=== PATIENT | female | born 1970 ===

== ENCOUNTER 2023-02-06 02:31 | Day surgery (SDC) | payer OTHER, SELFPAY ==
[2023-02-04 10:32] VITALS: BMI 20.9
--- NOTE | 2023-02-04 10:41 | PC.NURSE ---
Report to the Outpatient Waiting Room, entrance under the green pavilion located off [facility], at time 1230 on date 02/06/23. Planned Procedure Time: 1430. Time changes happen often and if your time is changed the preop area will call you the afternoon before. - You and your visitor will be asked to self-screen and do not enter if you have any COVID symptoms. - Only one visitor is requested with a max of two and NO children visitors are allowed at this time. - The patient visitor may be requested to leave or wait in car when not with patient due to distancing restrictions. - A mask is optional within the hospital at this time. Patients may have clear liquids (water, carbonated beverages, clear teas, apple juice) until 3 hours prior to surgery with a maximum of 20 ounces. - No food from midnight until time of surgery Take the following medications with a SIP of water the morning of surgery: CEPHALEXIN, PAIN PILL IF NEEDED, METOPROLOL, SERTRALINE DO NOT STOP ANY OF YOUR OTHER PRESCRIPTION MEDICATIONS PRIOR TO SURGERY?EXCEPT THE FOLLOWING Medications to discontinue per physician: VITAMINS/SUPPLEMENTS Date to take last dose: NO MORE UNTIL AFTER SURGERY Please no make-up, nail djiboutian, hairspray, perfume, deodorant, or body powder the day of surgery. No jewelry (including any body piercings) or valuables the day of surgery, leave them at home. Please take a shower or bath the night before, or the morning of, surgery with an antibacterial soap. Wear comfortable, loose fitting clothing. - Jewelry must be removed prior to entering the operating room. Rings and piercings that are not removed may be cut off. - The hospital will not accept responsibility for valuables. - Please leave all valuables, including medications, at home the day of surgery. If you are going home after surgery, a licensed stud driver must drive you home. - NO public transportation without another adult if you receive anesthesia. - We recommend that an adult stay with you for 24 hours following discharge. - We also recommend that you do not drive, make important decision, drink alcoholic beverages, or take any drugs that were not prescribed by your health care provider for at least 24 hours after your discharge time. Follow any additional instructions given to you from your surgeon. If you or anyone in your household have experienced Covid symptoms in the past week, please notify your surgeon or the nurse liaison at the phone number below for possible testing. Telephone instructions given to PT - KENDELL BURT and asked if any additional questions and then verbalized understanding. Patient advised to call surgeon office or pre surgery nurse liaison [phone] if any additional questions.
[2023-02-06] VITALS (7 sets, daily range): BP systolic 110–144; BP diastolic 54–89; PULSE 73–95; RESP 12–16; TEMP 36.3–37.3; O2SAT 100
--- NOTE | ~2023-02-06 | XR_ITS ---
XR stent kub - surgery DATE: 02/06/2023 16:13 INDICATION: Right stent placement TECHNIQUE: 4 spot C-arm images of abdomen and pelvis 19.3 seconds fluoroscopy time [id number] mGym2 DAP COMPARISON: None FINDINGS: There is placement of a right internal urinary stent, proximal pigtail overlying the right kidney, the distal pigtail overlying the right side of the base of the urinary bladder. IMPRESSION: Right internal urinary stent placement Reviewed, dictated and finalized at location A.
--- NOTE | 2023-02-06 06:34 | WPDHPUPDATE1 ---
History and Physical Update Update Date/Time: 02/06/23 06:34 History and Physical has been reviewed, including an updated exam of the patient. There are NO changes in the patient's condition. Risks, benefits, and alternatives have been discussed and questions answered. Patient agrees to proceed with procedure.
--- NOTE | 2023-02-06 06:39 | ECG_ITS ---
Measurements Intervals [place] Rate: 61 P: 48 [place]: 170 QRS: 20 QRSD: 88 T: 39 QT: 400 QTc: 405 Interpretive Statements SINUS RHYTHM MINIMAL Q WAVES- INFERIOR LEADS BASELINE ARTIFACT- V4-V5 BORDERLINE ECG NO PREVIOUS ECG AVAILABLE FOR COMPARISON Electronically Signed On 02-06-2023 13:42:38 CDT by Calderon Bailey D.O.
[2023-02-06] MEDS: LACTATED RINGERS 1,000 ML 30 ML IV CONT ×2 (12:45→16:05)
[2023-02-06 13:08] LABS: Hematocrit 29.6 % (37.0-47.0); Hemoglobin 8.7 g/dL (12.0-15.0)
[2023-02-06] MEDS: fentaNYL CITRATE INJ (*CRX) 100 MCG/2 ML VIAL 50 MCG IV PUSH (14:25)
--- NOTE | 2023-02-06 14:28 | WPDANESEPPF ---
Anes - Initial Pre Proc Eval Procedure: Operation Date: 02/06/23 14:30 Proposed Procedures p Cystoscopy, Right Ureteroscopy, Right Stone Extraction, Right Stent Placement, Holmium Laser Procedure - Osorio Pate MD Date/Time: 02/06/23 14:28 Surgeon: Osorio Pate MD Pre Op Diagnosis: kidney stones Patient Data Age: 52 Gender: F Height: 1.68 m Weight: 58 kg Last Vital Signs Temp 36.3 C L 02/06/23 12:30 Pulse 73 02/06/23 12:30 Resp 16 02/06/23 12:30 BP 110/54 L 02/06/23 12:30 Pulse Ox 100 02/06/23 12:30 O2 Del Method Room Air 02/06/23 12:30 Allergies Allergy/AdvReac Type Severity Reaction Status Date / Time No Known Allergies Allergy Unverified 02/06/23 13:15 Home Medications Medication Instructions Recorded Confirmed Type cephalexin 500 mg capsule 500 mg PO TID 02/04/23 02/04/23 History ferrous sulfate 325 mg (65 mg 325 mg PO DAILY 02/04/23 02/04/23 History iron) tablet (Iron (ferrous sulfate)) hydrocodone 5 mg-acetaminophen 325 1 tablet PO Q6H PRN Pain 02/04/23 02/04/23 History mg tablet metoprolol succinate 50 mg 50 mg PO DAILY 02/04/23 02/04/23 History tablet,extended release 24 hr multivitamin 1 tablet PO DAILY 02/04/23 02/04/23 History omeprazole 20 mg capsule,delayed 20 mg PO DAILY 02/04/23 02/04/23 History release ondansetron 4 mg disintegrating 4 mg PO Q8H PRN Nausea 02/04/23 02/04/23 History tablet sertraline 50 mg tablet 75 mg PO DAILY 02/04/23 02/04/23 History Laboratory Tests 02/06/23 12:49 Hgb 8.7 g/dL L g/dL (12.0-15.0) Hct 29.6 % L % (37.0-47.0) Patient hx anesthesia problems: none Family hx anesthesia problems: none Results Review: All pre-operative results and documents have been reviewed as part of the pre-operative evaluation. [facility] Surgical History Surgical History Hx of abdominoplasty Hx of bariatric surgery Gastric sleeve Hx of bilateral breast reduction surgery Hx of section Family History Family History Other Family history of malignant neoplasm of bone Social History Social History Smoking status: Never smoker Alcohol intake: current Alcohol use details: BOTTLE OF WINE/WEEK Substance use: current Substance use type: marijuana Living arrangements: with family Additional living arrangements comments: DAUGHTERS Spiritual care concerns: No Anes - Eval Final PreProcedure Day of Procedure 02/06/23 14:28 Patient weight: normal Heart: regular rate and rhythm Lungs: clear to auscultation Airway: Mallampati scale class II Neurological: alert and oriented Last oral intake: >/= 8 hours ASA classification: III Emergent: no Anesthetic plan: proceed Anesthesia type and monitoring: general LMA and standard monitoring Results Review: All pre-operative results and documents have been reviewed as part of the pre-operative evaluation. Informed Consent: The patient's anesthetic plan and its attendant risks and benefits were discussed with the patient/family/POA. Questions were solicited and answers provided to the satisfaction of the patient/family/POA.
[2023-02-06] MEDS: ceFAZolin 2 GM/D5W 50 ML 2 GM/50 ML BAG IVPB (15:19)
[2023-02-06] MEDS: LIDOCAINE HCL 2% GEL UROJET 10 ML PKG MUCOUS MEM (15:38)
[2023-02-06] MEDS: fentaNYL CITRATE INJ (*CRX) 100 MCG/2 ML VIAL 25 MCG IV PUSH ×4 (16:22→16:44)
--- NOTE | 2023-02-06 17:09 | W.PM.PROC2 ---
Procedure Note - Detailed Date of Procedure 02/06/23 Pre-op Diagnosis Right ureteral stone Post-op Diagnosis Same Procedure Performed Cystoscopy, right ureteroscopy, laser lithotripy with stone extraction and right ureteral stent placement. Surgeon Osorio Pate MD Anesthesia General Description of Procedure The patient was brought to the operative suite where she is prepped and draped in a routine sterile fashion while in the dorsal lithotomy position after the uneventful induction of a general LMA anesthetic. A 19F rigid cystoscope was placed in the bladder. The patient had no evidence of urethral stricture or bladder neck contracture. The bladder mucosa was endoscopically normal without hyperemia or neoplasm. There was a single, orthotopic ureteral orifice bilaterally. A 0.035 glidewire was advanced into the right renal pelvis under fluoroscopy. The distal ureter was dilated with an 8F/10F ureteral dilator. Ureteroscopy was undertaken with a short tapered semi-rigid ureteroscope/7.5F flexible ureteroscope. With ureteroscopy I fractured the stone into smaller pieces using a 242micron Holmium laser fiber with the Holmium laser using a dusting mode. I was able to then extract the stone pieces using a 1.9F Escape, disposable stone basket. Due to the extent of this manipulation I did place a 4.8F double-J ureteral stent. The proximal coil of the stent was confirmed to be in the renal pelvis and the distal coil in the bladder. The patient's bladder was emptied and he was taken to the recovery room having tolerated this procedure well. Drains Yes Pathology Yes Complications No immediate complications Condition Stable
[2023-02-06] MEDS: oxyCODONE HCL (*CRX) 5 MG TAB IR PO (17:19)
== END 2023-02-06 17:31 | disposition home or self-care (01) ==
PROVIDERS: Anesthesiology; Visit Provider Urology
PROC: (CPT 52352; principal; 2023-02-06 14:30)
DX: N20.1 Calculus of ureter (principal); Z98.84 Bariatric surgery status; F12.90 Cannabis use, unspecified, uncomplicated
CPT/HCPCS: 52356; 36415; 82365; 85014; 85018; 88300; 93005; A9270; C1769; C2617; J0690; J1100; J2250; J2370; J2405; J2704; J3010; J7120

== ENCOUNTER 2023-06-03 10:45 | Outpatient (CLI) | payer OTHER, SELFPAY ==
--- NOTE | ~2023-06-03 | XR_ITS ---
Supine and upright views of the abdomen Clinical history: Renal stone Findings: Bowel gas pattern is nonspecific. No evidence for obstruction or free air. No abnormal mass lesion or calcification is seen. Probable small calcified pelvic phleboliths. Osseous structures are intact. Impression: No definite renal stone. Probable calcified pelvic phleboliths. Reviewed, dictated and finalized at [facility]. Impression: No definite renal stone. Probable calcified pelvic phleboliths.
== END 2023-06-03 10:46 | disposition home or self-care (01) ==
LOC: ANHIMG 10:47
PROVIDERS: Visit Provider Urology
DX: N20.0 Calculus of kidney (principal)
CPT/HCPCS: 74018

== ENCOUNTER 2024-04-19 11:54 | Emergency (ER) | payer OTHER, SELFPAY ==
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
[2024-04-19 11:57] VITALS: BP 152/84; PULSE 101; RESP 16; TEMP 36.7; O2SAT 100
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
== END 2024-04-19 14:09 | disposition home or self-care (01) ==
PROVIDERS: Emergency Provider Nurse Practitioner Family
DX: S00.33XA Contusion of nose, initial encounter (principal); S16.1XXA Strain of muscle, fascia and tendon at neck level, initial encounter; Z98.84 Bariatric surgery status; Y04.2XXA Assault by strike against or bumped into by another person, initial encounter
CPT/HCPCS: 70450; 70486; 72125; 99284